=== PATIENT | male | born 1940 | race Caucasian/White ===

== ENCOUNTER 2019-04-22 20:22 | Emergency (ER) | payer MEDICARE, OTHER ==
--- NOTE | 2019-04-22 20:32 | EDM.PDOCBH ---
ED HPI GENERAL MEDICAL PROBLEM - General Chief Complaint: Behavioral/Psych Stated Complaint: EVAL Time Seen by Provider: 04/22/19 21:19 Source of Information: Reports: Patient History Limitations: Reports: No Limitations - History of Present Illness INITIAL COMMENTS - FREE TEXT/NARRATIVE: 78 years old male patient brought in by Sophia weinstein because of the phone call from his [id number] concerning about his safety. She mentioned that he made some suicidal comments. He has some stress going on between him and his of 57 years of marriage. They going through divorce. Patient stated that he was saying that we do want the circumstances to push S to the ultimatum. Stated that he meant that he wanted. Reasonable and solves the problem with his before anybody get to the point of extreme. He denies any suicidal or homicidal thoughts. Denies any drug or alcohol use. No new medication. Denies hearing voices. He says he is feeling very safe for himself and doesn't have any homicidal thoughts - Related Data Allergies Allergy/AdvReac Type Severity Reaction Status Date / Time Penicillins Allergy Rash Verified 04/22/19 20:41 ED ROS GENERAL - Review of Systems Review Of Systems: ROS reveals no pertinent complaints other than HPI. ED EXAM, BEHAVIORAL HEALTH - Physical Exam Exam: See Below Exam Limited By: No Limitations General Appearance: Alert, No Apparent Distress Ears: Normal External Exam, Normal Canal, Hearing Grossly Normal, Normal TMs Nose: Normal Inspection, Normal Mucosa, No Blood Throat/Mouth: Normal Inspection, Normal Lips, Normal Teeth, Normal Gums, Normal Oropharynx, Normal Voice, No Airway Compromise Head: Atraumatic, Normocephalic Neck: Normal Inspection, Supple, Non-Tender, Full Range of Motion Respiratory/Chest: No Respiratory Distress, Lungs Clear, Normal Breath Sounds, No Accessory Muscle Use, Chest Non-Tender Cardiovascular: Normal Peripheral Pulses, Regular Rate, Rhythm, No Edema, No Gallop, No JVD, No Murmur, No Rub GI/Abdominal: Normal Bowel Sounds, Soft, Non-Tender, No Organomegaly, No Distention, No Abnormal Bruit, No Mass Back Exam: Normal Inspection, Full Range of Motion, NT Neurological: Alert, Normal Mood/Affect, CN II-XII Intact, Normal Cognition, Normal Gait, Normal Reflexes, No Motor/Sensory Deficits, Oriented x 3 Psychiatric: Alert, Normal Affect, Normal Cognition, Normal Mood, Oriented. No : Homicidal Thoughts, Suicidal Thoughts, Visual Hallucinations, Paranoid Thoughts, Threatening Behavior COURSE, BEHAVIORAL HEALTH COMP - Course Vital Signs: Last Vital Signs Temp 36.3 C 04/22/19 20:47 Pulse 102 H 04/22/19 20:47 Resp 18 04/22/19 20:47 BP 109/93 H 04/22/19 20:47 Pulse Ox 96 04/22/19 20:47 Orders, Labs, Meds: Active Orders 24 hr Category Date Time Status DRUG SCREEN, URINE [URCHEM] Urgent Lab 04/22/19 20:53 Ordered Laboratory Tests 04/22/19 04/22/19 04/22/19 Range/Units 21:02 21:02 21:02 WBC 6.6 (4.5-11.0) K/uL RBC 4.49 (4.30-5.90) M/uL Hgb 14.0 (12.0-15.0) g/dL Hct 42.1 (40.0-54.0) % MCV 94 (80-98) fL MCH 31 (27-31) pg MCHC 33 (32-36) % Plt Count 184 (150-400) K/uL Neut % (Auto) 74 H (36-66) % Lymph % (Auto) 15 L (24-44) % [place] % (Auto) 7 H (2-6) % Eos % (Auto) 3 (2-4) % Baso % (Auto) 1 (0-1) % Sodium 143 (140-148) mmol/L Potassium 3.7 (3.6-5.2) mmol/L Chloride 105 (100-108) mmol/L Carbon Dioxide 28 (21-32) mmol/L Anion Gap 10.5 (5.0-14.0) mmol/L BUN 25 H (7-18) mg/dL Creatinine 1.6 H (0.8-1.3) mg/dL Est Cr Clr Drug Dosing 39.92 mL/min Estimated GFR (MDRD) 42 L (>60) Glucose 192 H (74-106) mg/dL Calcium 8.7 (8.5-10.1) mg/dL Ethyl Alcohol < 3 mg/dL Re-Assessment/Re-Exam: Patient was seen and examined shortly after arrival. Stable. Lab reviewed. Crisis team has been consulted. Medical Clearance: 04/22/19 23:34 Patient was seen and examined shortly after arrival. Stable. Lab reviewed. Crisis team has been consulted. Patient continued to deny being suicidal or homicidal.. They feel he is not suicidal and he recommended sending him home. They will follow-up with him tomorrow. Patient is feeling safe going home home. Advised to come back if symptom worsen or any concern. Patient agrees with the plan. Stable for discharge. Departure - Departure Time of Disposition: 23:33 Disposition: Home, Self-Care 01 Condition: Good Clinical Impression: Suicidal thoughts - Discharge Information *PRESCRIPTION DRUG MONITORING PROGRAM REVIEWED*: Not Applicable *COPY OF PRESCRIPTION DRUG MONITORING REPORT IN PATIENT MIKAEL: Not Applicable Instructions: Suicidal Feelings: How to Help Yourself, Helping Someone Who is Suicidal Referrals: PCP,None [Primary Care Provider] - Forms: ED Department Discharge Additional Instructions: Come back if symptom worsen Follow-up with crisis team tomorrow - My Orders Last 24 Hours: My Active Orders 04/22/19 20:53 DRUG SCREEN, URINE [URCHEM] Urgent - Assessment/Plan Last 24 Hours: My Active Orders 04/22/19 20:53 DRUG SCREEN, URINE [URCHEM] Urgent Plan: Come back if symptom worsen Follow-up with crisis team tomorrow
== END 2019-04-22 23:39 | disposition home or self-care (01) ==
LOC: JP.ED 20:22
DX: R45.851 Suicidal ideations (principal); Z88.0 Allergy status to penicillin
CPT/HCPCS: 36415; 80048; 85025; 99284; G0480